=== PATIENT | male | born 1960 | race Caucasian/White ===

== ENCOUNTER 2019-12-04 20:23 | Emergency (ER) | payer OTHER ==
--- OUTSIDE RECORDS SUMMARY | 2019-12-04 20:37 | XMS REPORT | Summary of Care ---
:1960 Author Organization [facility] Address [address] [address] Care Team Providers Name Role Phone Krishna Erwin Primary Care Provider Reason for Visit Reason Comments Follow Up pt presents for follow up with HTN and diabetes Encounter Details Date Type Department Care Team Description 11/30/2019 Office Visit [facility] Krishna Erwin MD Type 2 diabetes mellitus without complication, without long-term current use of insulin (HCC) (Primary Dx); Practice [address] [facility] Essential hypertension [address] [place], [place] [id number] [place] [address] [phone] Allergies Active Allergy Reactions Severity Noted Date Comments Seasonal Respiratory Reaction 08/22/2019 documented as of this encounter (statuses as of 11/30/2019) Medications Medication Sig Dispensed Refills Start Date End Date Status Multiple Vitamin Take by 0 Active (MULTI VITAMIN mouth. DAILY PO) Pyridoxine HCl Take by 0 Active (VITAMIN B-6) 100 mouth DAILY. MG Oral Tab pravastatin TAKE ONE 30 Tab 2 11/13/2019 Active (PRAVACHOL) 40 MG TABLET BY Oral Tab MOUTH EVERY DAY metFORMIN HCL TAKE ONE 30 Tab 2 11/13/2019 Active 1000 MG Oral Tab TABLET BY MOUTH EVERY DAY LISINOPRIL-HCTZ Take 1 Tab 30 Tab 1 11/16/2019 Active 20-25 MG Oral Tab by mouth DAILY. Cancel the 20/12.5 lisinopril-hydroc Take 1 Tab 30 Tab 1 08/22/2019 11/30/2019 Discontinued hlorothiazide by mouth (Dose Adjustment) (ZESTORETIC, DAILY. PRINZIDE) 20-12.5 MG Oral Tab documented as of this encounter (statuses as of 11/30/2019) Active Problems Problem Noted Date Diabetes mellitus type 2, without complication 09/19/2019 Essential hypertension 09/19/2019 documented as of this encounter (statuses as of 11/30/2019) Immunizations Name Administration Dates Next Due Influenza (IM) Preservative Free 05/23/2019 documented as of this encounter Social History Tobacco Use Types Packs/Day Years Used Date Never Smoker 0 Smokeless Tobacco: Never Used Alcohol Use Drinks/Week oz/Week Comments Yes Alcohol Habits Answer Date Recorded How often do you have a drink containing alcohol? Monthly or less 08/22/2019 How many drinks containing alcohol do you have on a 1 or 2 08/22/2019 typical day when you are drinking? How often do you have six or more drinks on one Less than monthly 08/22/2019 occasion? Sex Assigned at Date Recorded Not on file documented as of this encounter Last Filed Vital Signs Vital Sign Reading Time Taken Comments Blood Pressure 130/72 11/30/2019 4:16 PM EDT Pulse 75 11/30/2019 4:16 PM EDT Temperature - - Respiratory Rate - - Oxygen Saturation 99% 11/30/2019 4:16 PM EDT Inhaled Oxygen Concentration - - Weight 105.2 kg (231 lb 14.4 oz) 11/30/2019 4:16 PM EDT Height 179.1 cm (5' 10.5") 11/30/2019 4:16 PM EDT Body Mass Index 32.8 11/30/2019 4:16 PM EDT documented in this encounter Progress Notes Krishna Erwin MD - 11/30/2019 4:20 PM EDT PATIENT: Max Benítez : 1960 DATE OF SERVICE: 11/30/2019 CHIEF COMPLAINT: Chief Complaint Patient presents with ? Follow Up pt presents for follow up with HTN and diabetes Subjective HISTORY OF PRESENT ILLNESS: Max Benítez is a 59-y.o. male. in for follow up of diabetes mellitus. He has exercised a little more and is eating a lot better stopping ice cream and cookies a1c came down to 7.6 In for follow up of hypertension. Last visit we changed hctz to 25 mg . no side effects to medicines and the renal fxn stayed ok Past Medical History: Diagnosis Date ? Asthma ? Diabetes mellitus (HCC) ? Essential (primary) hypertension Family History Problem Relation Age of Onset ? Diabetes Mother ? Prostate Cancer Father Current Outpatient Medications Medication Sig ? LISINOPRIL-HCTZ 20-25 MG Oral Tab Take 1 Tab by mouth DAILY. Cancel the 01/09.5 ? metFORMIN HCL 1000 MG Oral Tab TAKE ONE TABLET BY MOUTH EVERY DAY ? Multiple Vitamin (MULTI VITAMIN DAILY PO) Take by mouth. ? pravastatin (PRAVACHOL) 40 MG Oral Tab TAKE ONE TABLET BY MOUTH EVERY DAY ? Pyridoxine HCl (VITAMIN B-6) 100 MG Oral Tab Take by mouth DAILY. No current facility-administered medications for this visit. Allergies Allergen Reactions ? Seasonal Respiratory Reaction Social History Socioeconomic History ? Marital status: Single Spouse name: Not on file ? Number of children: Not on file ? Years of education: Not on file ? Highest education level: Not on file Occupational History ? Not on file Social Needs ? Financial resource strain: Not on file ? Food insecurity Worry: Not on file Inability: Not on file ? Transportation needs Medical: Not on file Non-medical: Not on file Tobacco Use ? Smoking status: Never Smoker ? Smokeless tobacco: Never Used Substance and Sexual Activity ? Alcohol use: Yes Frequency: Monthly or less Drinks per session: 1 or 2 Binge frequency: Less than monthly ? Drug use: Never ? Sexual activity: Never Lifestyle ? Physical activity Days per week: Not on file Minutes per session: Not on file ? Stress: Not on file Relationships ? Social connections Talks on phone: Not on file Gets together: Not on file Attends church service: Not on file Active member of club or organization: Not on file Attends meetings of clubs or organizations: Not on file Relationship status: Not on file ? Intimate partner violence Fear of current or ex partner: Not on file Emotionally abused: Not on file Physically abused: Not on file Forced sexual activity: Not on file Other Topics Concern ? 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 Physical Exam Vitals signs reviewed. Constitutional: Appearance: He is not ill-appearing. Comments: Down 15lb Cardiovascular: Rate and Rhythm: Normal rate and regular rhythm. Pulmonary: Effort: Pulmonary effort is normal. No respiratory distress. Neurological: Comments: Vibration 7 seconds Psychiatric: Mood and Affect: Mood normal. ASSESSMENT / IMPRESSION: ICD-9-CM ICD-10-CM 1. Type 2 diabetes mellitus without complication, without long-term current use of insulin (HCC) [id number] Keep up good work on diet 250.00 E11.9 GLYCOHEMOGLOBIN A1C COMPREHENSIVE METABOLIC PANEL LIPID PROFILE 2. Essential hypertension BP better with diuretic and labs stable follow up in March as k did drop some 401.9 I10 Plan Author: Krishna Erwin MD 11/30/2019 22:23 documented in this encounter Plan of Treatment Date Type Specialty Care Team Description 04/02/2020 Lab Internal Medicine 04/17/2020 Office Visit Family Practice Krishna Erwin MD [address] [place] [address] [phone] Name Type Priority Associated Diagnoses Order Schedule GLYCOHEMOGLOBIN A1C Lab Routine Type 2 diabetes Expected: 11/30/2019 mellitus without (Approximate), complication, without Expires: 11/29/2020 long-term current use of insulin (HCC) COMPREHENSIVE METABOLIC Lab Routine Type 2 diabetes Expected: 11/30/2019 PANEL mellitus without (Approximate), complication, without Expires: 11/29/2020 long-term current use of insulin (HCC) LIPID PROFILE Lab Routine Type 2 diabetes Expected: 11/30/2019 mellitus without (Approximate), complication, without Expires: 11/29/2020 long-term current use of insulin (HCC) Health Maintenance Due Date Last Done Comments CT Colonography 1960 Cologuard 1960 FIT/FOBT 1960 Sigmoidoscopy 1960 PNEUMOCOCCAL 0-64 YRS (1 of 1 1966 - PPSV23) DTaP/Tdap/Td Vaccines (1 - 11/28/1971 Tdap) HIV SCREENING 11/28/1975 FOOT EXAM 1978 ZOSTER IMMUNIZATION SERIES (1 2010 of 2) HEMOGLOBIN A1C 02/21/2020 11/21/2019, 08/22/2019 DEPRESSION SCREENING 08/22/2020 08/22/2019 LIPID DISORDER SCREENING 11/12/2020 11/13/2019, 08/22/2019 Colonoscopy 2020 2010 Colorectal Cancer Screening 2020 Diabetic Eye Exam 04/21/2021 04/21/2019 INFLUENZA VACCINE Completed 05/23/2019 HEPATITIS C SCREENING Completed 08/22/2019 HEPATITIS A IMMUNIZATION Aged Out No longer eligible based SERIES on patient's age to complete this topic HPV IMMUNIZATION SERIES Aged Out No longer eligible based on patient's age to complete this topic MENINGOCOCCAL VACCINE IMM Aged Out No longer eligible based on patient's age to complete this topic documented as of this encounter Goals Goal Patient Goal Associated Recent Patient-Stated? Author Type Problems Progress Blood Pressure Blood Pressure 130/72 No Rip, < 140/90 (11/30/2019 MD Krishna 4:16 PM EDT) Note: This is an individualized treatment (blood pressure) goal for Max Benítez: Displayed above (on the left) is your goal for blood pressure control. Your most recent blood pressure is also shown above, on the right. You should try to achieve blood pressures that are lower than your goal listed above (on the left). Glycohemoglobin A1c < 7.0 Diabetes 7.6 (11/21/2019 3:55 PM No Krishna Erwin MD EDT) Note: This is an individualized treatment (diabetes control, HgbA1C) goal for Max Benítez: Displayed above is your progress towards your HgbA1C goal. Your goal is shown above (on the left); your most recent HgbA1C is shown on the right. Note that lower numbers are better. Weight loss vs. 18 mo Lifestyle 16.3 (11/30/2019 4:16 PM No Krishna Erwin MD max (lbs) >= 10 EDT) Note: This is an individualized lifestyle goal for Max Benítez: Your body mass index (BMI) is more than 30. You should lose weight. A reasonable starting goal is to lose 10 pounds. Displayed above is how many pounds you have lost thus far towards your 10 pound weight loss goal. Keep immunizations current Lifestyle No Krishna Erwin MD Note: This is an individualized lifestyle goal for Max Benítez: Please be sure to keep up-to-date on recommended immunizations. For example, this would include a yearly influenza vaccine. Immunization status can be seen by looking at the Health Maintenance sections of your [employer], Plan of Care, and any After Visit Summaries. Take all prescribed medications as directed Self-management No Krishna Erwin MD Note: This is an individualized self-management goal for Mxa Benítez: Please take all prescribed medications as directed. 1. Do not skip doses. If you cannot afford your medications, talk with your doctor. 2. Use a pill reminder system such as a pill box if needed. Your pharmacist can help you with this. 3. Contact your Pharmacy 5 days before your medication runs out. If you cannot take your medications for any reasons, talk with your doctor. 4. Please bring all of your medication bottles and inhalers (or a list of all your medications/inhalers) with you to every visit. Potential barriers to meeting all of your care plan goals will continue to be addressed on an ongoing basis. documented as of this encounter Procedures Procedure Name Priority Date/Time Associated Diagnosis Comments DIABETES FOOT EXAM Routine 11/30/2019 documented in this encounter Results DIABETES FOOT EXAM (11/30/2019) FOOT EXAM 7 seconds [facility] Performing Organization Address City/State/Zipcode Phone Number [facility] [address] [place] [phone] documented in this encounter Visit Diagnoses Diagnosis Type 2 diabetes mellitus without complication, without long-term current use of insulin (HCC) Essential hypertension Unspecified essential hypertension documented in this encounter Insurance Payer Benefit Plan / Subscriber ID Effective Dates Phone Address Type Group [employer] A[employer]NA [id number] 2019-Present [employer] documented as of this encounter
[2019-12-04] MEDS ORDERED: Lactated Ringers 1000 ML Bag* 1,000 ML IV ONE ×2 (20:51→21:36)
[2019-12-04] MEDS ORDERED: fentaNYL* 50 MCG/ML 2 ML VIAL (100 MCG VIAL) IV SLOW PU ONE (20:51)
[2019-12-04] MEDS ORDERED: Ondansetron INJ* 2 MG/ML VIAL IV ONE (20:51)
[2019-12-04] MEDS ORDERED: Famotidine IV* 10 MG/ML 2 ML (20 mg) IV SLOW PU ONE (20:51)
[2019-12-04 21:19] LABS: ABS Monocytes 0.7 10^3/ul (0-0.8); ABS Neutrophils 12.8 10^3/ul (1.5-7.7); Hematocrit 40 % (42-52); Hemoglobin 13.7 g/dL (14.0-18.0); Lymphocyte % 6.8 %; Mean Corpuscular HGB Conc 34 g/dL (31-36); Mean Corpuscular Hemoglobin 31 pg (27-31); Mean Corpuscular Volume 92 fL (80-94); Mean Platelet Volume 8.9 fL (7.4-10.4); Platelet Count 220 10^3/uL (150-450); Red Blood Count 4.35 10^6 /uL (4.18-5.48); Red Cell Distribution Width 13 % (10-15); White Blood Count 14.5 10^3/uL (3.5-10.8)
--- NOTE | 2019-12-04 21:21 | ED ---
Abdominal Pain/Male - HPI Summary HPI Summary: Patient is a 59 y/o M presenting to [facility] with chief complaint of left flank and LLQ abdominal pain. He states that he experienced the first episode of his pain at around 0230 12/03/19. Patient states that the pain resolved approximately one hour later. This morning, patient states that he was without pain and went to work. 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 Patient states that he experienced onset of his pain once more while he was in his car driving back home. Patient had an exacerbation of his pain when he got out of his car. Patient states that the pain has been present for the past four hours and characterizes his pain as a soreness. He denies dysuria and changes to urine odor and color. Patient states that his stool has been soft and brown but states that he is producing smaller amounts of stool overall. Patient states that his last meal was around lunchtime today, 12/04/19; patient ate some meat and potato chips. No nut consumption over the past few days noted, but he possibly had popcorn 11/30/19. He denies Hx of kidney stones. Home medications and allergies are reviewed. - History of Current Complaint Chief Complaint: EDAbdPain Stated Complaint: LT SIDE PAIN PER PT Time Seen by Provider: 12/04/19 20:38 Hx Obtained From: Patient Onset/Duration: Lasting Hours, Still Present Timing: Intermittent Severity Currently: Severe Pain Intensity: 9 Pain Scale Used: 0-10 Numeric Location: Discrete At: LLQ, Flank - left Character: Other: - soreness Associated Signs And Symptoms: Negative: Urinary Symptoms - Allergies/Home Medications Allergies/Adverse Reactions: Allergies Allergy/AdvReac Type Severity Reaction Status Date / Time No Known Allergies Allergy Verified 12/04/19 20:26 Home Medications: Home Medications Aspirin EC TAB* [Ecotrin EC Low Dose 81 MG*] 81 mg PO DAILY 12/04/19 [History Confirmed 12/04/19] Lisinopril/HCTZ (NF) [Zestoretic (NF)] 1 tab PO DAILY 12/04/19 [ History Confirmed 12/04/19] Multivitamins/Minerals TAB* [Theragran/minerals TAB*] 1 tab PO DAILY 12/04/19 [ History Confirmed 12/04/19] Pravastatin (NF) [Pravachol (NF)] 40 mg PO DAILY 12/04/19 [History Confirmed ] metFORMIN* [Glucophage 1000 MG TAB *] 1,000 mg PO DAILY 12/04/19 [History Confirmed 12/04/19] Ketorolac TAB * [Toradol TAB *] 10 mg PO Q6H #20 tab 12/05/19 [Rx] Tamsulosin CAP* [Flomax CAP*] 0.4 mg PO DAILY #10 cap 12/05/19 [Rx] PMH/Surg Hx/FS Hx/Imm Hx Endocrine/Hematology History: Reports: Hx Diabetes - NIDDM DIET AND EXERCISE ONLY Cardiovascular History: Reports: Hx Hypertension Respiratory History: Reports: Hx Asthma - NO PROBLEMS FOR YRS MOSTLY CHILD History: Denies: Hx Kidney Stones Sensory History: Reports: Hx Contacts or Glasses - GLASSES INST GIVEN Denies: Hx Hearing Aid Opthamlomology History: Reports: Hx Contacts or Glasses - GLASSES INST GIVEN - Surgical History Hx Anesthesia Reactions: No Infectious Disease History: No Infectious Disease History: Denies: Traveled Outside the [place] in Last 30 Days - Family History Known Family History: Positive: Diabetes - Social History Alcohol Use: Occasionally Substance Use Type: Reports: None Smoking Status (MU): Never Smoked Tobacco Review of Systems Positive: Abdominal Pain - LLQ Genitourinary: Other - negative - changes to urine color and odor Positive: flank pain - left . Negative: dysuria All Other Systems Reviewed And Are Negative: Yes Physical Exam - Summary Physical Exam Summary: Constitutional: Well-developed, Well-nourished, Alert. (-) Distressed Skin: Warm, Dry HENT: Normocephalic; Atraumatic; Dry Oral Mucosa Eyes: Conjunctiva normal Neck: Musculoskeletal ROM normal neck. (-) JVD, (-) Stridor, (-) Tracheal deviation Cardio: Rhythm regular, rate normal, Heart sounds normal; Intact distal pulses; The pedal pulses are 2+ and symmetric. Radial pulses are 2+ and symmetric. Pulmonary/Chest wall: Effort normal. (-) Respiratory distress, (-) Wheezes, (-) Rales Abd: Soft; localizing pain to left flank and LLQ, no specifically tender on exam ; (-) Distension, (-) Guarding, (-) Rebound Musculoskeletal: (-) Edema Neuro: Alert, Oriented x3 Psych: Mood and affect Normal Triage Information Reviewed: Yes Vital Signs On Initial Exam: Initial Vitals Temp Pulse Resp BP Pulse Ox 97.3 F 64 15 156/82 100 12/04/19 20:24 12/04/19 20:24 12/04/19 20:24 12/04/19 20:24 12/04/19 20:24 Vital Signs Reviewed: Yes Procedures - Sedation Patient Received Moderate/Deep Sedation with Procedure: No Diagnostics - Vital Signs Vital Signs Temp Pulse Resp BP Pulse Ox 12/04/19 20:24 97.3 F 64 15 156/82 100 - Laboratory Result Diagrams: 12/04/19 21:02 12/04/19 21:02 Lab Statement: Any lab studies that have been ordered have been reviewed, and results considered in the medical decision making process. - CT CT ABD/PEL CT Interpretation Completed By: Radiologist Summary of CT Findings: IMPRESSION: 1. There is a 3 mm calculus at the left ureterovesical junction with mild left. obstructive uropathy. There is additional nonobstructive left nephrolithiasis. 2. There is colonic diverticulosis without evidence for acute diverticulitis. THIS REPORT WAS REVIEWED BY ED PHYSICIAN. Re-Evaluation - Re-Evaluation First Eval Re-Evaluation Time: 21:35 Comment: Bloodwork was reviewed, lactic of 2.4 noted, patient to receive second bolus of fluid. Second Eval Re-Evaluation Time: 00:19 Comment: CT results reviewed with patient. Toradol and Flomax to be administered , will attempt to have patient pass stone as outpatient. Diverticulosis noted on CT as well. Patient advised to start high fiber diet. He will followup with his PCP and obtain urologist followup from PCP. Patient is agreeable with this plan. He was discharged to home with prescription for Flomax and Toradol. Abdominal Pain Male Course/Dx - Course Course Of Treatment: Patient is a 59 y/o M presenting to [facility] with chief complaint of left flank and LLQ abdominal pain. He states that he experienced the first episode of his pain at around 0230 12/03/19. Patient states that the pain resolved approximately one hour later. This morning, patient states that he was without pain and went to work. 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 Patient states that he experienced onset of his pain once more while he was in his car driving back home. Patient had an exacerbation of his pain when he got out of his car. Patient states that the pain has been present for the past four hours and characterizes his pain as a soreness. He denies dysuria and changes to urine odor and color. Patient states that his stool has been soft and brown but states that he is producing smaller amounts of stool overall. Patient states that his last meal was around lunchtime today, 12/04/19; patient ate some meat and potato chips. No nut consumption over the past few days noted, but he possibly had popcorn 11/30/19. He denies Hx of kidney stones. On physical exam, patient is noted to have localizing pain to his left flank and LLQ, but he is not specifically tender on exam. Dry oral mucosa noted. Patient received liter of Lactated Ringers, Pepcid 20 mg IV, Zofran 4 mg IV, and Fentanyl 50 mcg IV. Bloodwork was obtained ; abnormal values include lactic acid of 2.4, WBC 14.5, creatinine 1.48, BUN 31 , anion gap 14, sodium 134, chloride 98, glucose 255, direct bilirubin 0.20, BUN /creatinine ratio of 20.9, Hgb 13.7, Hct 40, absolute neuts 12.8. UA showed 1+ ketones, 2+ blood, 3+ RBC, trace WBC, positive ascorbic acid. Patient received additional bolus of fluids. Piperacillin sod/tazobactam sod 3.375 gm in sodium chloride 100 mls @ 200 mls/hr IVPB was administered as well. CT ABD/PEL IMPRESSION: 1. There is a 3 mm calculus at the left ureterovesical junction with mild left. obstructive uropathy. There is additional nonobstructive left nephrolithiasis. 2. There is colonic diverticulosis without evidence for acute diverticulitis. CT results reviewed with patient. Toradol and Flomax to be administered, will attempt to have patient pass stone as outpatient. Diverticulosis noted on CT as well. Patient advised to start high fiber diet. He will followup with his PCP and obtain urologist followup from PCP. Patient is agreeable with this plan. Toradol 15 mg IV PUSH and Flomax 0.4 mg PO was administered. He was discharged to home with prescription for Flomax and Toradol. - Diagnoses Provider Diagnoses: Calculus of ureterovesical junction (UVJ), Obstructive uropathy Discharge ED - Sign-Out/Discharge Documenting (check all that apply): Patient Departure - discharge - Discharge Plan Condition: Stable Disposition: HOME Prescriptions: Ketorolac TAB * [Toradol TAB *] 10 mg PO Q6H #20 tab Tamsulosin CAP* [Flomax CAP*] 0.4 mg PO DAILY #10 cap Patient Education Materials: Diverticulosis (ED), High Fiber Diet (ED), Ureteral Stones (ED) Referrals: Krishna Erwin MD [Primary Care Provider] - 3 Days Additional Instructions: PLEASE RETURN TO ED FOR ANY NEW OR CONCERNING SYMPTOMS. PLEASE FOLLOWUP WITH YOUR PRIMARY CARE PHYSICIAN AND UROLOGY. - Billing Disposition and Condition Condition: STABLE Disposition: Home - Attestation Statements Document Initiated by Ernstibe: Yes Documenting Scribe: BENY MAHONEY Provider For Whom Ammy is Documenting (Include Credential): GABRIEL LUCERO MD Scribe Attestation: BENY Brown, scribed for GABRIEL LUCERO MD on 12/05/19 at 0353. Scribe Documentation Reviewed: Yes Provider Attestation: The documentation as recorded by the BENY morse accurately reflects the service I personally performed and the decisions made by me, GABRIEL LUCERO MD Status of Scribe Document: Viewed
[2019-12-04 21:33] LABS: Albumin 4.8 g/dL (3.2-5.2); Albumin/Globulin Ratio 1.5 (1-3); BUN/Creatinine Ratio 20.9 (8-20); Calcium 10.1 mg/dL (8.6-10.3); EGFR African American 58.9 (>60); EGFR Non-African American 48.6 (>60); Globulin 3.1 g/dL (2-4); Indirect Bilirubin 0.7 mg/dL (0.3-1.0); Potassium 3.9 mmol/L (3.5-5.0); Total Bilirubin 0.9 mg/dL (0.2-1.0); Total Protein 7.9 g/dL (6.4-8.9)
[2019-12-04 21:50] LABS: Urine Appearance Clear; Urine Bilirubin Negative (Negative); Urine Blood 2+ (Negative); Urine Color Yellow; Urine Glucose Negative (Negative); Urine Ketones 1+ (Negative); Urine Nitrite Negative (Negative); Urine Protein Negative (Negative); Urine Specific Gravity 1.021 (1.010-1.030); Urine Urobilinogen Negative (Negative)
[2019-12-04 21:52] LABS: Urine Bacteria Absent (Absent); Urine Red Blood Cell 3+(>10/hpf) (Absent); Urine White Blood Cell Trace(0-5/hpf) (Absent)
[2019-12-04] MEDS ORDERED: Piperacillin/Tazobac ADVAN(*) 3.375 GM in NS 0.9% 100 ML* 100 ML IVPB ONE (22:22)
[2019-12-04] MEDS ORDERED: Iodixanol* (CONTRAST) 320 MG/ML 100 ML SDV IV ONE (23:03)
[2019-12-05] MEDS ORDERED: Ketorolac INJ* 30 MG/ML 1 ML VIAL IV PUSH ONE (00:01)
[2019-12-05] MEDS ORDERED: Tamsulosin CAP* 0.4 MG PO ONE (00:30)
[2019-12-05 01:36] VITALS: BP 108/61
== END 2019-12-05 01:52 | disposition home or self-care (01) ==
LOC: ED 20:23
DX: N20.2 Calculus of kidney with calculus of ureter (principal); N13.9 Obstructive and reflux uropathy, unspecified; K57.30 Diverticulosis of large intestine without perforation or abscess without bleeding; N28.1 Cyst of kidney, acquired; E11.9 Type 2 diabetes mellitus without complications; I10 Essential (primary) hypertension; J45.909 Unspecified asthma, uncomplicated; Z79.82 Long term (current) use of aspirin; Z79.84 Long term (current) use of oral hypoglycemic drugs; Z79.899 Other long term (current) drug therapy
CPT/HCPCS: 36415; 74177; 80048; 80076; 81003; 81015; 83605; 83690; 85025; 87086; 96361; 96365; 96375; 99284; J1885; J2405; J2543; J3010; Q9967